=== PATIENT | female | born 1975 | race African-American/Black ===

== ENCOUNTER 2017-09-27 10:12 | Day surgery (SDC) | payer OTHER ==
[2017-09-27 11:50] LABS: BASO % 0.8 % (0-2.0); EOS % 1.6 % (0-4.5); HEMATOCRIT 20.8 % (32.4-45.2); LYMPH % 24.1 % (8-40); MCHC 26.8 g/dl (32.0-36.0); MEAN CELL VOLUME 59.4 fl (80-96); MEAN PLT VOLUME 8.3 fl (7.5-11.1); NEUT % 59.5 % (42.8-82.8); PLATELET COUNT 292 K/MM3 (134-434); RBC 3.51 M/mm3 (3.60-5.2); RDW 19.5 % (11.6-15.6); WHITE BLOOD COUNT 4.5 K/mm3 (4.0-10.0)
[2017-09-27 12:03] LABS: MCH 15.9 pg (25.7-33.7)
[2017-09-27 12:06] LABS: ADD RBC MORPHOLOGY YES; HEMOGLOBIN 5.6 GM/dL (10.7-15.3)
[2017-09-27 13:28] VITALS: BMI 24.3
[2017-09-27 13:42] LABS: ANISOCYTOSIS 2+; TARGET CELLS 3+
[2017-09-27] MEDS ORDERED: ACETAMINOPHEN 325 MG TABLET (FP) PO SCH (13:45)
--- NOTE | 2017-09-27 15:52 | HP ---
History & Physical Update - History History: No Change - Physical Physical: No Change - Assessment Assessment: No Change - Plan Plan: No Change (41yo P2 With abnormal uterine bleeding admited for 2 units of blood transfusion Hysteroscopy, polypectomy, D&C Consent signed all questions answered Patient used Cytotec 600mcg for premedication)
[2017-09-27] MEDS ORDERED: MIDAZOLAM HCL 2 MG/2 ML SINGLE DOSE VIAL ONE ×2 (17:00)
[2017-09-27] MEDS ORDERED: DEXAMETHASONE SOD PHOSPHATE 4 MG/1 ML VIAL ONE (17:00)
[2017-09-27] MEDS ORDERED: PROPOFOL 20 ML ONE ×2 (17:00→17:39)
[2017-09-27] MEDS ORDERED: KETOROLAC TROMETHAMINE 30 MG/1 ML VIAL ONE (17:00)
[2017-09-27] MEDS ORDERED: ONDANSETRON 4 MG/2 ML VIAL IVPUSH PRN ×2 (18:04→18:12)
[2017-09-27] MEDS ORDERED: PROMETHAZINE HCL 25 MG/1 ML VIAL IVPUSH PRN (18:04)
[2017-09-27] MEDS ORDERED: oxyCODONE HCL 5 MG TABLET PO PRN ×2 (18:04→18:12)
--- NOTE | 2017-09-27 18:10 | OP ---
Operative Note - Note: Operative Date: 09/27/17 Pre-Operative Diagnosis: 41yo P2 with sever anemia, large fibroid uterus, excessive menses Operation: Hysteroscopy, partial polypectomy, D&C Findings: 1.14week multifibroid uterus 2. Overgrown Endometrium 3. Multiple Endometrial polyps Post-Operative Diagnosis: Same as Pre-op Surgeon: Simran Cobb Anesthesiologist/PRESSING MACHINE TENDER: Behzad Loja Anesthesia: MAC Specimens Removed: Polyps and Endometrial curettings Estimated Blood Loss (mls): 50 Instrument used (Debridements only): Diagnostic Hysteroscope Drains & Tubes with Location: Fluid deficit 100cc Drains, Volume Out (mls): 100 Blood Volume Replaced (mls): 500 Fluid Volume Replaced (mls): 700 Operative Report Dictated: Yes
[2017-09-27] MEDS ORDERED: IBUPROFEN 600 MG TABLET (FP) PO PRN (18:12)
[2017-09-27] MEDS ORDERED: IBUPROFEN 800 MG/8 ML IJ IVPB PRN (18:12)
[2017-09-27] MEDS ORDERED: ELECTROLYTE-148 SOLN 1,000 ML IV SCH (18:15)
[2017-09-27] MEDS ORDERED: LACTATED RINGERS SOLUTION 1,000 ML IV SCH (18:15)
[2017-09-28 02:58] VITALS: BP 150/84; PULSE 64; TEMP 98.3
--- NOTE | 2017-09-28 08:19 | OP ---
DATE OF OPERATION: 09/27/2017 PREOPERATIVE DIAGNOSES: A 41-year-old, para 2 with severe anemia, large fibroid uterus, excessive menses. OPERATION: Hysteroscopy, partial polypectomy, dilatation and curettage. FINDINGS: 1. A 14-week multi-fibroid uterus. 2. Overgrown endometrium. 3. Multiple endometrial polyps. POSTOPERATIVE DIAGNOSES: A 41-year-old, para 2 with severe anemia, large fibroid uterus, excessive menses. SURGEON: Simran Cobb MD ANESTHESIOLOGIST: Behzad Loja MD ANESTHESIA: MAC. SPECIMENS REMOVED: Polyps and endometrial curettings. ESTIMATED BLOOD LOSS: 50 mL INSTRUMENT USED: Diagnostic hysteroscope. FLUID DEFICIT: 100 mL URINE OUTPUT: 100 mL BLOOD VOLUME REPLACED: 500 mL or 2 packed units of red blood cells. FLUID VOLUME REPLACED: 700 mL of Plasmalyte. DESCRIPTION OF OPERATIVE PROCEDURE: After assuring informed consent, patient was brought to the operating room where she was placed in dorsal lithotomy position. Perineum was prepped and draped in sterile fashion. The Stanton' speculum was placed in the vagina, and cervix was articulated with single-tooth tenaculum, dilated to gauge 19, and hysteroscope inserted without any difficulty. Multiple large uterine polyps were visualized, and polyp forceps and sharp curette up to size 3 were used to remove polyps. Hysteroscope was reintroduced, and uterus was found to be intact. Since procedure was performed for the purpose of the diagnosis and no appropriate instruments were available to complete the procedure, procedure was stopped. All instruments were removed from cervix and the vagina. Instrument and sponge count was correct x2. Patient was extubated, brought to the recovery room in stable condition. Michael [id number]
--- NOTE | 2017-10-01 12:02 | PATH ---
Surgical Pathology Report Patient Name: ESTELA ALEXIS [facility]. Rec. #: [id number] /Age/Gender: 1975 (Age: 41) / F Account: [id number] Location: [facility] MED/SURG Taken: 09/27/2017 Received: 09/28/2017 Reported: 10/01/2017 Physicians: Simran Cobb M.D. Specimen(s) Received ENDOMETRIAL CURETTINGS ENDOMETRIAL POLYPS Clinical History Multi-fibroid uterus, excessive menstruation, anemia Final Diagnosis UTERUS, ENDOMETRIAL CURETTINGS AND ENDOMETRIAL POLYPS, DILATATION AND CURETTAGE: POLYPOID FRAGMENTS OF SECRETORY ENDOMETRIUM, BENIGN ECTOCERVICAL TISSUE, AND FRAGMENTS SMOOTH MUSCLE CONSISTENT WITH SUBMUCOSAL LEIOMYOMA. Electronically Signed Angie Fernando M.D. Gross Description Received in formalin labeled "endometrial curettings and endometrial polyps," is a 6.5 x 4.5 x 0.4 cm aggregate of pitt-brown soft tissue fragments admixed with blood clot. The formalin is filtered and the specimen is entirely submitted in 5 cassettes. /09/28/[address] [facility]09/28/2017
== END 2017-09-27 21:47 | disposition home or self-care (01) ==
LOC: JBLOOD 10:12 → JONCBLOOD 10:12 → J7W 10:18 → JBLOOD 21:47
PROVIDERS: ATTEND Obstetrics & Gynecology
PROC: 0UB98ZX Excision of Uterus, Via Natural or Artificial Opening Endoscopic, Diagnostic (ICD-10-PCS; principal; 2017-09-27 15:00)
PROC: 0UDB7ZX Extraction of Endometrium, Via Natural or Artificial Opening, Diagnostic (ICD-10-PCS; 2017-09-27 15:00)
DX: N92.0 Excessive and frequent menstruation with regular cycle (principal); D64.9 Anemia, unspecified; N84.0 Polyp of corpus uteri; D25.9 Leiomyoma of uterus, unspecified
CPT/HCPCS: 36415; 36430; 84703; 85025; 86850; 86900; 86901; 86922; 88305-TC; 94760; P9038; P9058

== ENCOUNTER 2017-11-02 05:05 | Day surgery (SDC) | payer OTHER ==
[2017-10-31 16:41] VITALS: BMI 24.3
--- NOTE | 2017-11-02 12:57 | HP ---
History & Physical Update - History History: No Change - Physical Physical: No Change - Assessment Assessment: No Change - Plan Plan: No Change (Consented to Hysteroscopy/Polypectomy/D&C/Endometrial ablation)
[2017-11-02] MEDS ORDERED: MIDAZOLAM HCL 2 MG/2 ML SINGLE DOSE VIAL ONE (13:05)
[2017-11-02] MEDS ORDERED: PROPOFOL 20 ML ONE ×2 (13:05→13:23)
[2017-11-02] MEDS ORDERED: LIDOCAINE HCL/PF 2% SDV 5ML VIAL ONE (13:05)
[2017-11-02] MEDS ORDERED: DEXAMETHASONE SOD PHOSPHATE 4 MG/1 ML VIAL ONE (13:42)
[2017-11-02] MEDS ORDERED: KETOROLAC TROMETHAMINE 30 MG/1 ML VIAL ONE (13:49)
[2017-11-02] MEDS ORDERED: oxyCODONE HCL 5 MG TABLET PO PRN (14:35)
[2017-11-02] MEDS ORDERED: IBUPROFEN 800 MG/8 ML IJ IVPB PRN (14:35)
[2017-11-02] MEDS ORDERED: ONDANSETRON 4 MG/2 ML VIAL IVPUSH PRN (14:35)
[2017-11-02] MEDS ORDERED: IBUPROFEN 600 MG TABLET (FP) PO PRN (14:35)
--- NOTE | 2017-11-02 14:35 | OP ---
Operative Note - Note: Operative Date: 11/02/17 Pre-Operative Diagnosis: 42yo P1 with heavy menses, Multiple Endometrial polyps , sever anemia requiring blood transfusion Operation: Hysteroscopy/Polypectomy/D&C/Endometrial ablation Findings: 14wk multifibroid Uterus Bl ostia visualised Overgrown polypoid posterior endometrium Endocervical polyp Successful Endometrial ablation Post-Operative Diagnosis: Same as Pre-op Surgeon: Simran Cobb Anesthesiologist/MOLD STAMPER AND REPAIRER: Lizbeth Anguiano Anesthesia: MAC Specimens Removed: Endometrial and Endocervical Polyps Estimated Blood Loss (mls): 0 Drains & Tubes with Location: Fluid deficit - 800cc Blood Volume Replaced (mls): 250 Fluid Volume Replaced (mls): 300 Operative Report Dictated: Yes
[2017-11-02] MEDS ORDERED: ELECTROLYTE-148 SOLN 1,000 ML IV SCH (14:45)
[2017-11-02] MEDS ORDERED: hydrALAZINE HCL 20 MG/ML VIAL ONE ×2 (14:47→16:43)
[2017-11-02] MEDS ORDERED: hydrALAZINE HCL 20 MG/ML VIAL IVPUSH ONE ×2 (14:49→17:17)
[2017-11-02] MEDS ORDERED: SODIUM CHLORIDE 1,000 ML IV SCH (15:00)
[2017-11-02] MEDS ORDERED: LIDOCAINE HCL 2% JELLY 10 ML CARTRIDGE ONE (15:39)
--- NOTE | 2017-11-02 18:05 | RAPID ---
<Yelena Case - Last Filed: 11/02/17 18:27> Physical Examination Vital Signs: Vital Signs Temperature 98.7 F 11/02/17 14:49 Pulse Rate 80 11/02/17 17:10 Respiratory Rate 18 11/02/17 17:10 Blood Pressure 201/153, 160/93 11/02/17 17:10 O2 Sat by Pulse Oximetry (%) 100 11/02/17 17:10 Findings/Remarks: Rapid was called at 5:48 pm. Rapid team immediately responded. Nurse at bed side. As per nurse, patient walked out of the bathroom appearing diaphoretic and pale. Patient also complained of feeling nauseas and dizzy. Patient was found to be hypertensive at 201/153. Constitutional: Yes: Well Nourished, Anxious (Preoccupid with kids at home and not with her.) Cardiovascular: Yes: Regular Rate and Rhythm. No: Murmur Respiratory: Yes: WNL, Regular, CTA Bilaterally Neurological: Yes: WNL, Alert, Oriented Rapid Response - Rapid Response Assessment: Patient was tearful and stressed about leaving family at home. After counseling patient, appeared calm afterwards. Patient BP improved. Advised to dim lights and rest. Will reassess patient. <Jeanna Loza - Last Filed: 11/03/17 16:17> Physical Examination Vital Signs: Vital Signs Temperature 98.6 F 11/02/17 17:35 Pulse Rate 73 11/02/17 20:30 Respiratory Rate 16 11/02/17 20:30 Blood Pressure 153/90 11/02/17 20:30 O2 Sat by Pulse Oximetry (%) 100 11/02/17 17:35 During the UTILITY HELICOPTER REPAIRER, repeat BP 153/90. symptoms have resolved. advised to repeat BP in 1 hour if BP is controlled can go home if rises or becomes symptomatic should come in as observation overnight for BP management Labs: CBC, BMP 11/02/17 19:30 11/02/17 19:30
[2017-11-02 18:18] VITALS: TEMP 98.6
[2017-11-02] MEDS ORDERED: ONDANSETRON 4 MG/2 ML VIAL ONE (18:35)
[2017-11-02 19:03] VITALS: BP 153/90; PULSE 73
--- NOTE | 2017-11-02 19:36 | PN ---
Progress Note (short form) - Note Progress Note: ANESTHESIOLOGY Called to assess patient in PACU for hypertension. Had already received hydralazine 10 mg with moderate effect, second dose ordered and BP returned to baseline values. Nurse also reports diuresis in excess of 3L. Pt has no complaints. Denies, CP, SOB. Lungs clear bilaterally on auscultation. Reassessed patient in ASU after a rapid reponse was called due to dizziness, diaphoresis, hypertension and anxiety (pt report history of anxiety). Pt now asymptomatic, has diuresed another 1 L. BMP and CBC ordered. Will follow up before potential discharge home.
[2017-11-02 19:44] LABS: HEMATOCRIT 30.8 % (32.4-45.2); HEMOGLOBIN 9.4 GM/dL (10.7-15.3); MCH 20.2 pg (25.7-33.7); MCHC 30.6 g/dl (32.0-36.0); MEAN CELL VOLUME 66.1 fl (80-96); MEAN PLT VOLUME 8.9 fl (7.5-11.1); PLATELET COUNT 297 K/MM3 (134-434); RBC 4.67 M/mm3 (3.60-5.2); RDW 24.7 % (11.6-15.6); WHITE BLOOD COUNT 10.9 K/mm3 (4.0-10.0)
[2017-11-02 20:05] LABS: ANION GAP 8 (8-16); BLOOD UREA NITROGEN 9 mg/dL (7-18); CALCIUM 8.4 mg/dL (8.5-10.1); CHLORIDE 106 mmol/L (98-107); CO2 25 mmol/L (21-32); CREATININE 0.6 mg/dL (0.55-1.02); GLUCOSE,RANDOM 127 mg/dL (74-106); SODIUM 139 mmol/L (136-145)
[2017-11-02 20:21] LABS: POTASSIUM 2.8 mmol/L (3.5-5.1)
[2017-11-02] MEDS ORDERED: POTASSIUM CHLORIDE TABS 20 MEQ TABLET.ER (FP) PO ONE ×2 (20:38→20:41)
[2017-11-02] MEDS ORDERED: POTASSIUM CHLORIDE TABS 10 MEQ TABLET.ER (FP) PO ONE (20:38)
--- NOTE | 2017-11-05 20:23 | OP ---
DATE OF OPERATION: 11/02/2017 PREOPERATIVE DIAGNOSES: A 42-year-old para 1 with heavy menses, multiple endometrial polyps, severe anemia requiring blood transfusion. OPERATION: Hysteroscopy, polypectomy, dilatation and curettage, endometrial ablation. FINDINGS: A 14-week multi-fibroid uterus, bilateral ostia visualized; overgrown polypoid posterior endometrium; endocervical polyp; successful endometrial ablation. POSTOPERATIVE DIAGNOSES: A 42-year-old para 1 with heavy menses, multiple endometrial polyps, severe anemia requiring blood transfusion. SURGEON: Simran Cobb MD ANESTHESIOLOGIST: Lizbeth Anguiano MD ANESTHESIA: MAC. SPECIMENS REMOVED: Endometrial and endocervical polyps. DESCRIPTION OF OPERATIVE PROCEDURE: After assuring informed consent, patient was brought to the operating room where she was placed in dorsal lithotomy position. After assuring appropriate level of anesthesia, perineum and vagina were prepped with Betadine and draped in sterile fashion. Hysteroscope was assembled, primed, and white balanced. Uterus was palpated to be 14 cm. Bladder was drained with straight catheter. The Stanton speculums were placed in the vagina, and anterior cervical lip was articulated with single-tooth tenaculum. Cervix was gradually dilated in size with Garza dilators to accommodate 5-mm hysteroscope. Hysteroscope was used, and endometrial cavity was visualized, found to have posterior endometrium with overgrown polypoid tissue. The smallest TruClear resectoscope was utilized to resect all polypoid tissue from the posterior endometrium as well as to resect the endocervical polyp. Subsequently, the Genesys hysteroscope was used to, without any further dilation, was introduced into the uterus, and HTA Genesys ablation was performed full cycle, 10 minutes at 90 degrees Celsius and subsequently the 2-minute cooling cycle. Excellent ablation was visualized throughout the whole procedure. The entire endometrial cavity was ablated. Subsequently, all instruments were removed from uterus, cervix, and vagina. Instrument and sponge count was correct x2. Estimated blood loss was 0 mL. Patient received 300 mL of IV fluids, received 1 unit of packed red blood cells, drained 200 mL of urine, and fluid deficit was 800 mL. Patient tolerated procedure well and was brought to the recovery room in stable condition. Michael [id number] MTDD
--- NOTE | 2017-11-06 13:56 | PATH ---
Surgical Pathology Report Patient Name: ESTELA ALEXIS [facility]. Rec. #: [id number] /Age/Gender: 1975 (Age: 42) / F Account: [id number] Location: [facility] Taken: 11/02/2017 Received: 11/05/2017 Reported: 11/06/2017 Physicians: Simran Cobb M.D. Specimen(s) Received POLYP Clinical History Menorrhagia Final Diagnosis ENDOMETRIUM, CURETTING: BENIGN ENDOMETRIAL POLYP, AND SECRETORY ENDOMETRIUM. Electronically Signed Jeff Pang M.D. Gross Description Received in formalin labeled "polyp," is a 2.3 x 2.3 x 0.2 cm aggregate of pitt soft tissue fragments. The formalin is filtered and the specimen is entirely submitted in one cassette. /11/05/201711/05/2017
== END 2017-11-02 20:51 | disposition home or self-care (01) ==
LOC: JASU-SURG 05:05
PROVIDERS: ATTEND Obstetrics & Gynecology
PROC: 0UB98ZX Excision of Uterus, Via Natural or Artificial Opening Endoscopic, Diagnostic (ICD-10-PCS; 2017-11-02)
PROC: 0UDB8ZX Extraction of Endometrium, Via Natural or Artificial Opening Endoscopic, Diagnostic (ICD-10-PCS; 2017-11-02)
PROC: 30233N1 Transfusion of Nonautologous Red Blood Cells into Peripheral Vein, Percutaneous Approach (ICD-10-PCS; 2017-11-02)
PROC: 0U5B8ZZ Destruction of Endometrium, Via Natural or Artificial Opening Endoscopic (ICD-10-PCS; principal; 2017-11-02 12:00)
PROC: 0UDB8ZX Extraction of Endometrium, Via Natural or Artificial Opening Endoscopic, Diagnostic (ICD-10-PCS; 2017-11-02 12:00)
PROC: 0UBC8ZX Excision of Cervix, Via Natural or Artificial Opening Endoscopic, Diagnostic (ICD-10-PCS; 2017-11-02 12:00)
DX: N93.8 Other specified abnormal uterine and vaginal bleeding (principal); N84.0 Polyp of corpus uteri; D64.9 Anemia, unspecified; I10 Essential (primary) hypertension; R42 Dizziness and giddiness
CPT/HCPCS: 36415; 80048; 84703; 85027; 86850; 86900; 86901; 86922; 88305-TC; 94760; P9038; P9058